=== PATIENT | female | born 1955 | race Caucasian/White ===

== ENCOUNTER 2023-11-18 06:29 | Emergency (ER) | payer MEDICARE ==
[~2023-11-18] VITALS: Ht 157.5 cm; Wt 74.1 kg
[2023-11-18 06:33] VITALS: TEMP 98.1
[2023-11-18] MEDS ORDERED: Morphine 10 MG/ML VIAL IM ONE (07:30)
[2023-11-18] MEDS ORDERED: PERCOCET 325 MG1 TA2 PO (07:33)
[2023-11-18] MEDS ORDERED: ARMOUR THYROID90 MG PO (07:47)
[2023-11-18] MEDS ORDERED: TOPAMAX50 MG PO (07:48)
[2023-11-18] MEDS ORDERED: CELEXA40 MG PO (07:48)
[2023-11-18] MEDS ORDERED: ZETIA 10MG TAB10 MG PO (07:49)
[2023-11-18 08:02] VITALS: BP 136/86; PULSE 104
== END 2023-11-18 08:00 | disposition home or self-care (01) ==
LOC: COL.ER 06:29
DX: S42.202A Unspecified fracture of upper end of left humerus, initial encounter for closed fracture (principal); W10.1XXA Fall (on)(from) sidewalk curb, initial encounter
CPT/HCPCS: J2270